=== PATIENT | female | born 1985 | race Hispanic/Latino ===

== ENCOUNTER 2016-05-25 18:54 | Emergency (ER) | payer SELFPAY ==
[~2016-05-25] VITALS: Ht 165.1 cm; Wt 57.3 kg
[2016-05-25 19:07] VITALS: BP 128/83; PULSE 100; RESP 18; O2SAT 99
--- NOTE | 2016-05-25 20:57 | ED.REPORT ---
HPI-URI / Cough / Cold Date of Service May 25, 2016 ED Provider: Thiago Gould DO A 31 year old female with no pertinent medical history presents to the ED complaining of throat pain. The pt has been experiencing a sore throat and left ear pain radiating into her face for five days. She has been unable to eat or speak for three days. Nursing Notes Stated Complaint: GENERAL Chief Complaint: FLU/Cold Symptoms Nursing Notes Reviewed: Yes Allergies: Coded Allergies: No Known Allergies (Unverified , 05/25/16) General Time Seen by MD: 20:57 Chief Complaint Sore throat Hx Obtained From: Patient, Spouse Arrived By: Walk-in Onset Occurred: 5 days ago Symptom Duration: Since onset Recent Healthcare: No recent doctor visit, No recent hospitalization Similar Sx Previous: No Past Medical History Past Medical History none reported Past Surgical History none reported Smoking History Unknown if Ever Smoker Social History Other Social History: Good social support, Ambulatory Status Independent Review of Systems Review of Systems Note: inability to eat or speak Constitutional: Denies: Fever Ears / Nose / Throat: Reports: Earache left, Sore throat Respiratory: Denies: Non-productive cough, Shortness of breath Skin: Denies Rash Complete sys rev & neg: except as marked. Physical Exam Initial Vital Signs Vital Signs (First) Date Time Temp Pulse Resp B/P Pulse Ox O2 Delivery O2 Flow Rate FiO2 05/25/16 19:07 36.6 100 18 128/83 99 Room Air Initial VS: Reviewed General/Constitutional: Awake, Alert ENT: Airway patent, Mucous membranes moist soft palate cellulitis no obvious fluctuance appearance of strep Respiratory / Chest: Atraumatic, Breath sounds NL, Breath sounds = bilat, No respiratory distress Head / Eyes: Atraumatic, Normocephalic, PERRL, EOMI Neck: Atraumatic, Supple, Full range of motion Cardiovascular: Heart rate NL, Regular rhythm, Heart sounds NL Abdomen: Atraumatic, Soft, Non-tender Skin: Atraumatic, Warm, Dry Neurologic: Oriented X3, No motor deficits, No sensory deficits Back: Atraumatic, Full range of motion Upper Extremity / MS: Atraumatic, Full range of motion Lower Extremity / Pelvis / MS: Atraumatic, Full range of motion Psychiatric: Affect NL, Mood NL Interpretation & Diagnostics Interpretation & Diagnostics: CT Neck: CONCLUSION: Mild asymmetric enlargement of the left palatine tonsil compatible with tonsillitis. No evidence of peritonsillar, parapharyngeal or retropharyngeal abscess. Lab Results Interpretation Result Diagram: 05/25/16222905/25/162229 Test 05/25/16 22:30 White Blood Count 10.4th/mm3 (3.8-10.1) Red Blood Count 3.74mil/mm3 (3.90-5.20) Hemoglobin 11.1g/dL (12.0-15.6) Hematocrit 34.0% (35.0-46.0) Mean Corpuscular Volume 90.9fL (81-100) Mean Corpuscular Hemoglobin 29.7pg (27.0-35.0) Mean Corpuscular Hemoglobin Concent 32.6% (32.0-37.0) Red Cell Distribution Width 12.5% (12.3-15.4) Platelet Count 255bil/L (150-400) Neutrophils (%) (Auto) 78.2% (40-74) Lymphocytes (%) (Auto) 16.0% (14-46) Monocytes (%) (Auto) 5.1% (4-12) Eosinophils (%) (Auto) 0.2% (0-5) Basophils (%) (Auto) 0.3% (0-3) Sodium Level 139mEq/L (134-144) Potassium Level 3.6mEq/L (3.5-5.2) Chloride Level 102mEq/L (97-108) Carbon Dioxide Level 19mmol/L (18-29) Blood Urea Nitrogen 8mg/dL (6-20) Creatinine 0.50mg/dL (0.57-1.00) Estimat Glomerular Filtration Rate 209mL/min (>59) Glucose Level 66mg/dL (60-99) Calcium Level 8.4mg/dL (8.5-10.1) Total Bilirubin 0.3mg/dL (0.0-1.2) Aspartate Amino Transf (AST/SGOT) 14U/L (0-50) Alanine Aminotransferase (ALT/SGPT) 9U/L (0-32) Alkaline Phosphatase 57U/L (25-150) Total Protein 7.1g/dL (6.4-8.4) Albumin 3.8g/dL (3.4-5.0) HCG Beta Subunit 0.500mIU/mL Hold Finney Top Tube Received (Received) Pulse Oximetry Interpretation Pulse Oximetry Interpretation: 99% on room air Pulse Oximetry: Pulse Ox normal Re-Eval/Medical Decision Med Decision/Clinical Course I was able to get a good look at her throat after the steroids antibiotics. She did not have evidence of abscess and the CT scan is reassuring. She will open her mouth widely. She has impressive cellulitis of the soft palate however. No signs of airway compromise. She is able swallow liquids and breathe well. I will place her on a course of steroids pain medicine and antibiotics. Referral to ear nose and throat. Re-Evaluation/Progress : Time of Eval: :22 Patient Status: Condition improved Re-Evaluation/Progress Note: Pt rechecked, who is resting comfortably. Diagnosis and the plan for discharge are discussed. The pt understands and agrees with the plan. All questions are addressed at this time. Counseled Regarding: Diagnosis, Lab results, Need for follow-up, When/why to return to ED Discharge & Departure Impression: Primary Impression: Tonsillitis Disposition: Home Discharge Condition All VS Reviewed: Yes Condition: Stable Patient Instructions: Tonsillitis (ED) Additional Instructions: Augmentin twice daily for 10 days. Medrol Dosepak as instructed. 1-2 El[place] every 6 hours needed for severe pain. Do not drive or drink alcohol consume acetaminophen while taking the [place]. I would like you to call the referral ear nose and throat surgeon (Dr. Smyth) and your primary care physician for follow-up. I think you should be seen by the ear nose and throat surgeon in 24- 48 hours to be sure that this does not develop into an abscess. The CAT scan did not show evidence of a discrete fluid collection but follow-up is essential. Call first thing in the morning to make this happen. Return if any problems or any worsening symptoms. Augmentin dos veces al da griselda 10 tapia. Medrol Dosepak segn las instrucciones. Elbing de 1-2 cada 6 horas para dolor junior. No conduzca o beber alcohol consumir acetaminofn teniendo la El[place]. Me gustara llamar a la nariz del odo referencias y garganta ciruirvin (Dr. Smyth) y corrales mdico de atencin primaria para seguimiento. Creo que debe ser vistas por el cirujano de odo nariz y garganta en 24-48 horas para asegurarse que esto no se convierte en un absceso. La TAC no mostr evidencia de sunny discreta coleccin flida clyde el seguimiento es esencial. Lo fortunato que llame en la maana para que esto suceda. Retorno si cualquier problemas o sntomas de empeoramiento. Referrals: Alex Smyth MD [facility] Scribe Attestation Portions of this note were transcribed by Leida Ellison. I, Dr. Gould personally performed the history, physical exam and medical decision-making; I reviewed and confirmed the accuracy of the information in the transcribed note. Signed by: Lashae Phan, 05/26/2016 and 0204. copies to: Alex Smyth MD; [facility] Thiago Gould DO May 25, 2016 20:57 LEIDA ELLISON May 25, 2016 22:04
[2016-05-25] MEDS ORDERED: Clindamycin Inj 900 MG in IV Premix 1 EACH IV ONE (22:00)
[2016-05-25] MEDS ORDERED: Dexamethasone Inj 20 MG in 0.9% Sodium Chloride-Pha MIX 50 ML IV ONE (22:00)
[2016-05-25] MEDS ORDERED: 0.9% Sodium Chloride 1,000 ML IV SCH (22:05)
[2016-05-25 22:41] LABS: BASOPHILS % (AUTO) 0.3 % (0-3); EOSINOPHILS % (AUTO) 0.2 % (0-5); MONOCYTES % (AUTO) 5.1 % (4-12); Mean Corpuscular Hemoglobin 29.7 pg (27.0-35.0); Mean Corpuscular Volume 90.9 fL (81-100); NEUTROPHILS % (AUTO) 78.2 % (40-74); Platelet Count 255 bil/L (150-400)
[2016-05-26 02:00] VITALS: BP 126/80; PULSE 99; RESP 16; O2SAT 100
--- NOTE | 2016-05-26 09:37 | DRSVH ---
PROCEDURE: CT NECK SOFT TISSUES WITH CONTRAST ([id number]) INDICATIONS: trismus, throat pain TECHNIQUE: After the administration of intravenous contrast, 3.0 mm axial sections acquired from the sella to th e aortic arch. Additional oblique axial 3.0 mm sections acquired through the pharynx. 3 mm thick co carito reformats were generated. For radiation dose reduction, the following was used: automated exp osure control. COMPARISON: None. FINDINGS: Image quality: Excellent. Lymph nodes: Bilateral enlarged level IIA lymph nodes are noted. Vessels: Visualized vasculature appears patent. Neck spaces: [place] tonsils are enlarged bilaterally left greater than right. No abscess identifie d. The oropharynx, nasopharynx, and pharynx demonstrate no mucosal lesions. The vocal cords, false v ocal cords, pyriform sinuses, epiglottis, vallecula, and tongue base all appear normal. Extramucosal spaces appear unremarkable. Glands: The parotid and submandibular glands appear normal. Thyroid gland is within normal limits. Miscellaneous: Visualized brain and orbits appear normal. Lung apices appear clear. Superficial so ft tissues appear normal. Bones: No suspicious bony lesions. Mild mucosal thickening noted in the maxillary sinuses bilaterall y. The mastoids appear unremarkable. IMPRESSION: 1. [place] tonsil enlargement left greater than right likely related to tonsillitis. 2. No abscess identified. 3. Bilateral level IIa lymphadenopathy this could be reactive or neoplastic. Dictated by: Fifi Lincoln MD, PhD on 05/26/2016 at 9:27 Approved by: Fifi Lincoln MD, PhD on 05/26/2016 at 9:36
== END 2016-05-26 02:01 | disposition home or self-care (01) ==
LOC: SED 18:54
DX: J03.90 Acute tonsillitis, unspecified (principal)
CPT/HCPCS: 36415; 70491; 80053; 84702; 85025; 87880; 96361; 96365; 96375; 99285; J1100; J1885; J7030; Q9967